=== PATIENT | female | born 1980 | race Caucasian/White ===

== ENCOUNTER 2016-09-17 09:07 | Day surgery (SDC) | payer BC ==
[~2016-09-17] VITALS: Ht 172.7 cm; Wt 68.1 kg
[~2016-09-17 09:07] MED LIST: DESYREL100 MG PO; KLONOPIN1 MG PO; TRICOR145 MG PO; ZOLOFT50 MG PO; [UNRECOGNIZED DRUG - OTHER] PO
[2016-09-17 10:03] VITALS: BP 117/76
[2016-09-17] MEDS ORDERED: IBUPROFEN800 MG PO (14:15)
[2016-09-17] MEDS ORDERED: HYDROCODON-ACE1 EAC7 PO (14:15)
[2016-09-17 15:15] VITALS: BP 109/58
[2016-09-17 16:08] VITALS: BP 109/75
== END 2016-09-17 16:16 | disposition home or self-care (01) ==
LOC: SDC 09:07
PROC: 0UBC7ZX Excision of Cervix, Via Natural or Artificial Opening, Diagnostic (ICD-10-PCS; principal; 2016-09-17)
DX: D06.7 Carcinoma in situ of other parts of cervix (principal); Z88.0 Allergy status to penicillin
CPT/HCPCS: 88305; 88307; J1170; J1885; J2250; J2405; J3010

== ENCOUNTER 2016-09-22 00:17 | Emergency (ER) | payer BC ==
[~2016-09-22] VITALS: Ht 172.7 cm; Wt 56.6 kg
[~2016-09-22 00:17] MED LIST changes: +HYDROCODON-ACE1 EAC7 PO; +IBUPROFEN800 MG PO
[2016-09-22 00:25] VITALS: BP 113/68
== END 2016-09-22 01:47 | disposition left against medical advice (07) ==
LOC: EME 00:17
DX: G89.18 Other acute postprocedural pain (principal); Z53.21 Procedure and treatment not carried out due to patient leaving prior to being seen by health care provider; R10.9 Unspecified abdominal pain

== ENCOUNTER 2017-01-11 09:44 | Inpatient (IN) | payer SELFPAY ==
[~2017-01-11] VITALS: Ht 172.7 cm; Wt 51.2 kg
[2017-01-11 10:38] LABS: HEMATOCRIT 43.7 % (36.0-46.0); MCH 34.7 PG (29.0-34.0); MCHC 34.8 G/DL (30.0-36.0); MCV 99.8 FL (83-99); MEAN PLAT.VOLUME 10.1 uM^3 (9.5-12.4); PLATELET COUNT 249 K/uL (156-360); RBC DIS.WIDTH-CV 12.4 % (11.8-14.6); RBC DIS.WIDTH-SD 45.9 % (39-53); RED BLOOD COUNT 4.38 M/uL (3.80-5.20)
[2017-01-11 10:47] LABS: CHLORIDE 91 mEq/L (99-109); D-DIMER ELISA < 150.00 ng/mLDDU (<230); POTASSIUM 3.4 mEq/L (3.7-5.4); SODIUM 137 mEq/L (136-147)
[2017-01-11 10:49] LABS: GLUCOSE 99 mg/dL (70-99)
[2017-01-11 10:50] LABS: ANION GAP 23 MEQ/L (2-14)
[2017-01-11 10:53] LABS: GFR ESTIMATE (CALCULATED) > 59 mL/min/
[2017-01-11 10:54] LABS: UREA NITROGEN (BUN) 15 mg/dL (9-23)
[2017-01-11 11:01] LABS: TROP-I INTERPRETATION NEGATIVE; TROPONIN-I 0.03 ng/mL (0.0-0.30)
[2017-01-11] MEDS ORDERED: ZANTAC150 MG PO (12:23)
[2017-01-11] MEDS ORDERED: SERTRALINE HCL25 MG PO (12:25)
[2017-01-11 13:49] LABS: TOTAL BILIRUBIN 0.8 mg/dL (0.0-1.0)
[2017-01-11 13:50] LABS: ALKALINE PHOSPHATASE 152 IU/L (3-129)
[2017-01-11 13:52] LABS: DIRECT BILIRUBIN 0.3 mg/dL (0.0-0.3)
[2017-01-11 14:01] VITALS: BP 99/66
[2017-01-11 15:28] LABS: TOTAL BILIRUBIN 0.6 mg/dL (0.0-1.0)
[2017-01-11 15:29] LABS: ALKALINE PHOSPHATASE 110 IU/L (3-129)
[2017-01-11 15:31] LABS: DIRECT BILIRUBIN 0.3 mg/dL (0.0-0.3)
[2017-01-11 15:36] VITALS: BP 103/78
[2017-01-11 15:55] LABS: TROP-I INTERPRETATION NEGATIVE; TROPONIN-I 0.02 ng/mL (0.0-0.30)
[2017-01-11 15:55] LABS: ADD MIUA? YES; BILIRUBIN NEGATIVE; BLOOD NEGATIVE; COLOR YELLOW ((YELLOW)); GLUCOSE (STRIP) NEGATIVE; KETONES 5; LEUKOCYTES TRACE; NITRITE NEGATIVE; PROTEIN (STRIP) NEGATIVE; SPECIFIC GRAVITY 1.021 (1.000-1.030); UROBILINOGEN 0.2 MG/DL (0.2-1.0)
[2017-01-11 16:29] LABS: EPITHELIAL CELLS 1+ /HPF; MUCUS 2+ /LPF; RED BLOOD CELLS 0-5 /HPF (0-5); WHITE BLOOD CELLS 0-5 /HPF (0-5)
[2017-01-11 16:30] LABS: AMORPHOUS URATES CRYSTALS 1+; BACTERIA NONE SEEN /HPF; CASTS NONE SEEN /LPF; CRYSTALS PRESENT
[2017-01-11 19:06] VITALS: BP 102/71
[2017-01-11 19:41] VITALS: BP 108/77
[2017-01-11 19:56] LABS: AMPHETAMINES QUANT VALUE 0 NG/ML; BARBITUATES QUANT VALUE 0 NG/ML; BENZODIAZEPINES, URINE SCREEN POSITIVE (200 ng/mL); MARIJUANA QUANT VALUE 0 NG/ML; OPIATES QUANTITATIVE VALUE 0 NG/ML; PHENCYCLIDINE QUANT VALUE 0 NG/ML
[2017-01-11 22:09] LABS: TROP-I INTERPRETATION NEGATIVE; TROPONIN-I 0.02 ng/mL (0.0-0.30)
[2017-01-11 22:47] VITALS: BP 100/70
[2017-01-12 02:37] VITALS: BP 111/81
[2017-01-12 07:18] LABS: MCH 36.2 PG (29.0-34.0); MCHC 34.8 G/DL (30.0-36.0); PLATELET COUNT 179 K/uL (156-360); RBC DIS.WIDTH-CV 12.7 % (11.8-14.6); RBC DIS.WIDTH-SD 48.5 % (39-53); WHITE BLOOD COUNT 6.2 K/uL (4.1-10.2)
[2017-01-12 07:25] LABS: MCV 103.8 FL (83-99); RED BLOOD COUNT 3.18 M/uL (3.80-5.20)
[2017-01-12 07:34] LABS: ANION GAP 10 MEQ/L (2-14); CHLORIDE 104 MEQ/L (99-109); GFR ESTIMATE (CALCULATED) > 59 mL/min/; GLUCOSE 80 mg/dL (70-99); POTASSIUM 3.1 MEQ/L (3.7-5.4); SAMPLE HEMOLYSIS CHECK 0; SAMPLE ICTERIC CHECK 0; SAMPLE LIPEMIA CHECK 0; SODIUM 139 MEQ/L (136-147); UREA NITROGEN (BUN) 9 mg/dL (9-23)
[2017-01-12 08:33] LABS: MAGNESIUM 1.7 mg/dl (1.3-2.7)
[2017-01-12 09:00] VITALS: BP 104/86
[2017-01-12 12:00] VITALS: BP 108/76
[2017-01-12 16:15] VITALS: BP 123/78
[2017-01-12 19:42] VITALS: BP 100/72
[2017-01-12 23:53] VITALS: BP 105/73
[2017-01-13 02:00] VITALS: BP 102/66
[2017-01-13 06:36] LABS: HEMATOCRIT 31.3 % (36.0-46.0); MCH 34.2 PG (29.0-34.0); MCHC 32.6 G/DL (30.0-36.0); MEAN PLAT.VOLUME 10.4 uM^3 (9.5-12.4); PLATELET COUNT 192 K/uL (156-360); RBC DIS.WIDTH-CV 12.8 % (11.8-14.6); RBC DIS.WIDTH-SD 49.2 % (39-53); RED BLOOD COUNT 2.98 M/uL (3.80-5.20); WHITE BLOOD COUNT 5.6 K/uL (4.1-10.2)
[2017-01-13 07:11] LABS: ANION GAP 9 MEQ/L (2-14); CHLORIDE 109 MEQ/L (99-109); GFR ESTIMATE (CALCULATED) > 59 mL/min/; GLUCOSE 72 mg/dL (70-99); POTASSIUM 3.2 MEQ/L (3.7-5.4); SAMPLE HEMOLYSIS CHECK 0; SAMPLE ICTERIC CHECK 0; SAMPLE LIPEMIA CHECK 0; SODIUM 142 MEQ/L (136-147); UREA NITROGEN (BUN) 4 mg/dL (9-23)
[2017-01-13] MEDS ORDERED: PROTONIX40 MG PO (07:51)
[2017-01-13 08:48] VITALS: BP 104/75
== END 2017-01-13 13:12 | disposition home or self-care (01) | DRG 315 ==
LOC: EME 09:44 → 4EAST 12:20 → EDOF 12:20 → ENRESERV 12:24 → EDOF 12:25 → ENRESERV 13:08 → 4EAST 18:45 → ENPENDDIS 01-13 → 4EAST 01-13 13:12
PROVIDERS: Internal Medicine; Nurse Practitioner Family
DX: R94.31 Abnormal electrocardiogram [ECG] [EKG] (principal); R07.89 Other chest pain; E87.2 Acidosis; E87.6 Hypokalemia; R55 Syncope and collapse; K52.9 Noninfective gastroenteritis and colitis, unspecified; K29.60 Other gastritis without bleeding; I95.9 Hypotension, unspecified; R00.0 Tachycardia, unspecified; R00.2 Palpitations; R06.02 Shortness of breath; R42 Dizziness and giddiness; S01.81XA Laceration without foreign body of other part of head, initial encounter; W10.9XXA Fall (on) (from) unspecified stairs and steps, initial encounter; Y92.009 Unspecified place in unspecified non-institutional (private) residence as the place of occurrence of the external cause; Y93.01 Activity, walking, marching and hiking; D64.9 Anemia, unspecified; R63.4 Abnormal weight loss; Z68.1 Body mass index [BMI] 19.9 or less, adult; G43.909 Migraine, unspecified, not intractable, without status migrainosus; F17.210 Nicotine dependence, cigarettes, uncomplicated; F41.0 Panic disorder [episodic paroxysmal anxiety]; F32.9 Major depressive disorder, single episode, unspecified; Z85.41 Personal history of malignant neoplasm of cervix uteri; Z82.49 Family history of ischemic heart disease and other diseases of the circulatory system; Z83.3 Family history of diabetes mellitus
CPT/HCPCS: 70450; 71020; 74176; 80048; 80076; 80306 90; 81003; 83605; 83735; 84100; 84443; 84484; 84702; 85027; 85379; 93005; 93306; 99281; 99285; J1650; J2060; J2405; J7030; S0028

== ENCOUNTER 2017-01-16 19:19 | Emergency (ER) | payer SELFPAY ==
[~2017-01-16] VITALS: Ht 172.7 cm; Wt 52.6 kg
[~2017-01-16 19:19] MED LIST changes: +PROTONIX40 MG PO; +SERTRALINE HCL25 MG PO; +ZANTAC150 MG PO
[2017-01-16 19:43] LABS: MCH 34.6 PG (29.0-34.0); MCHC 33.9 G/DL (30.0-36.0); MEAN PLAT.VOLUME 9.2 uM^3 (9.5-12.4); PLATELET COUNT 334 K/uL (156-360); RBC DIS.WIDTH-CV 13.2 % (11.8-14.6); RED BLOOD COUNT 3.53 M/uL (3.80-5.20); WHITE BLOOD COUNT 9.2 K/uL (4.1-10.2)
[2017-01-16 19:54] LABS: SODIUM 142 mEq/L (136-147)
[2017-01-16 19:55] LABS: CHLORIDE 104 mEq/L (99-109); GLUCOSE 105 mg/dL (70-99)
[2017-01-16 19:57] LABS: ANION GAP 13 MEQ/L (2-14)
[2017-01-16 19:59] LABS: GFR ESTIMATE (CALCULATED) > 59 mL/min/
[2017-01-16 20:00] LABS: UREA NITROGEN (BUN) 5 mg/dL (9-23)
[2017-01-16 20:03] LABS: TROP-I INTERPRETATION NEGATIVE; TROPONIN-I < 0.01 ng/mL (0.0-0.30)
[2017-01-16 21:40] LABS: SERUM ETHYL ALCOHOL 149 mg/dL
[2017-01-16 23:11] VITALS: BP 121/87
== END 2017-01-16 23:13 | disposition home or self-care (01) ==
LOC: EME → EDBD 19:19 → EME 19:19
PROVIDERS: Emergency Medicine
DX: F10.129 Alcohol abuse with intoxication, unspecified (principal); Y90.6 Blood alcohol level of 120-199 mg/100 ml; R07.9 Chest pain, unspecified; E86.0 Dehydration
CPT/HCPCS: 71020; 71275; 80048; 84484; 85027; 85379; 93005; 99281; 99285; G0480; J1885; J7030

== ENCOUNTER 2017-03-04 13:57 | Emergency (ER) | payer MEDICARE ==
[~2017-03-04] VITALS: Ht 172.7 cm; Wt 44.2 kg
[2017-03-04 17:16] LABS: CHLORIDE 104 mEq/L (99-109); POTASSIUM 3.4 mEq/L (3.7-5.4); SODIUM 140 mEq/L (136-147)
[2017-03-04 17:18] LABS: GLUCOSE 90 mg/dL (70-99)
[2017-03-04 17:19] LABS: ANION GAP 13 MEQ/L (2-14)
[2017-03-04 17:20] LABS: TOTAL BILIRUBIN 0.3 mg/dL (0.0-1.0)
[2017-03-04 17:21] LABS: SERUM ETHYL ALCOHOL 13 mg/dL
[2017-03-04 17:22] LABS: ALKALINE PHOSPHATASE 110 IU/L (3-129); GFR ESTIMATE (CALCULATED) > 59 mL/min/
[2017-03-04 17:23] LABS: UREA NITROGEN (BUN) 7 mg/dL (9-23)
[2017-03-04 17:24] LABS: HEMATOCRIT 37.9 % (36.0-46.0); MCHC 34.6 G/DL (30.0-36.0); MCV 101.3 FL (83-99); MEAN PLAT.VOLUME 10.5 uM^3 (9.5-12.4); PLATELET COUNT 210 K/uL (156-360); RBC DIS.WIDTH-CV 14.8 % (11.8-14.6); RBC DIS.WIDTH-SD 53.7 % (39-53); RED BLOOD COUNT 3.74 M/uL (3.80-5.20); WHITE BLOOD COUNT 5.8 K/uL (4.1-10.2)
[2017-03-04] MEDS ORDERED: ATARAX,VISTARIL50 MG PO (17:44)
[2017-03-04 18:11] VITALS: BP 94/72
== END 2017-03-04 18:11 | disposition home or self-care (01) ==
LOC: EME 13:57
PROVIDERS: Emergency Medicine
DX: F33.2 Major depressive disorder, recurrent severe without psychotic features (principal); F41.9 Anxiety disorder, unspecified; F17.200 Nicotine dependence, unspecified, uncomplicated; F10.10 Alcohol abuse, uncomplicated; Z88.0 Allergy status to penicillin
CPT/HCPCS: 80053; 81003; 85027; 90839; 99281; 99284; G0480

== ENCOUNTER 2017-03-18 16:57 | Inpatient (IN) | payer OTHER ==
[~2017-03-18] VITALS: Ht 172.7 cm; Wt 45.8 kg
[~2017-03-18 16:57] MED LIST changes: +ATARAX,VISTARIL50 MG PO
[2017-03-18 18:35] LABS: HEMATOCRIT 43.7 % (36.0-46.0); MCH 33.8 PG (29.0-34.0); MCHC 35.5 G/DL (30.0-36.0); MEAN PLAT.VOLUME 10.3 uM^3 (9.5-12.4); PLATELET COUNT 255 K/uL (156-360); RBC DIS.WIDTH-CV 14.1 % (11.8-14.6); RBC DIS.WIDTH-SD 49.1 % (39-53); WHITE BLOOD COUNT 14.6 K/uL (4.1-10.2)
[2017-03-18 18:36] LABS: MCV 95.2 FL (83-99); RED BLOOD COUNT 4.59 M/uL (3.80-5.20)
[2017-03-18 18:46] LABS: CHLORIDE 93 mEq/L (99-109); POTASSIUM 4.6 mEq/L (3.7-5.4); SODIUM 132 mEq/L (136-147)
[2017-03-18 18:49] LABS: GLUCOSE 103 mg/dL (70-99)
[2017-03-18 18:50] LABS: ANION GAP 25 MEQ/L (2-14)
[2017-03-18 18:51] LABS: TOTAL BILIRUBIN 1.2 mg/dL (0.0-1.0)
[2017-03-18 18:52] LABS: ALKALINE PHOSPHATASE 111 IU/L (3-129); SERUM ETHYL ALCOHOL < 10 mg/dL
[2017-03-18 18:53] LABS: GFR ESTIMATE (CALCULATED) > 59 mL/min/
[2017-03-18 18:54] LABS: UREA NITROGEN (BUN) 34 mg/dL (9-23)
[2017-03-18 19:01] LABS: QUANTITATIVE HCG < 4.0 MIU/ML
[2017-03-18 20:28] LABS: ADD MIUA? YES; BILIRUBIN MODERATE; BLOOD NEGATIVE; COLOR AMBER ((YELLOW)); GLUCOSE (STRIP) NEGATIVE; KETONES 20; LEUKOCYTES MODERATE; NITRITE NEGATIVE; PROTEIN (STRIP) 100; SPECIFIC GRAVITY 1.034 (1.000-1.030)
[2017-03-18 20:37] LABS: AMPHETAMINE NEGATIVE (500 ng/mL); BARBITURATES NEGATIVE (200 ng/mL); BENZODIAZEPINES PRESUMPTIVE POSITIVE (150 ng/mL); COCAINE NEGATIVE (150 ng/mL); INTERNAL CONTROLS VALID? YES; METHADONE NEGATIVE (200 ng/mL); METHAMPHETAMINE NEGATIVE (500 ng/mL); OPIATES (MORPHINE) NEGATIVE (100 ng/mL); OXYCODONE NEGATIVE (100 ng/mL); PHENCYCLIDINE NEGATIVE (25 ng/mL); PROPOXYPHENE NEGATIVE (300 ng/mL); THC CANNABINOIDS NEGATIVE (50 ng/mL); TRICYCLIC ANTIDEPRESSANTS NEGATIVE (300 ng/mL)
[2017-03-18 20:38] LABS: ADD MEDTOX COMMENT Y
[2017-03-18 20:55] LABS: BACTERIA 1+ /HPF; CASTS PRESENT /LPF; CRYSTALS NONE SEEN; EPITHELIAL CELLS 1+ /HPF; HYALINE CASTS 0-5 /LPF; MUCUS 3+ /LPF; RED BLOOD CELLS 0-5 /HPF (0-5)
[2017-03-18 21:09] LABS: ICTOTEST NEGATIVE
[2017-03-18 21:10] LABS: BENZODIAZEPINES, URINE SCREEN POSITIVE (200 ng/mL)
[2017-03-18 21:17] LABS: CHLORIDE 99 mEq/L (99-109); POTASSIUM 4.3 mEq/L (3.7-5.4); SODIUM 134 mEq/L (136-147)
[2017-03-18 21:19] LABS: GLUCOSE 101 mg/dL (70-99)
[2017-03-18 21:20] LABS: ANION GAP 20 MEQ/L (2-14)
[2017-03-18 21:23] LABS: GFR ESTIMATE (CALCULATED) > 59 mL/min/
[2017-03-18 21:24] LABS: UREA NITROGEN (BUN) 30 mg/dL (9-23)
[2017-03-18] MEDS ORDERED: KLONOPIN2 MG PO (23:01)
[2017-03-18] MEDS ORDERED: SERTRALINE HCL100 MG PO (23:01)
[2017-03-18] MEDS ORDERED: MULTI-VITAMIN1 EAC3 PO (23:03)
[2017-03-19 01:57] VITALS: BP 109/72
[2017-03-19 06:30] LABS: HEMATOCRIT 33.4 % (36.0-46.0); MCH 34.6 PG (29.0-34.0); MCHC 35.6 G/DL (30.0-36.0); MCV 97.1 FL (83-99); MEAN PLAT.VOLUME 10.4 uM^3 (9.5-12.4); RBC DIS.WIDTH-CV 14.5 % (11.8-14.6); RBC DIS.WIDTH-SD 51.7 % (39-53); WHITE BLOOD COUNT 13.5 K/uL (4.1-10.2)
[2017-03-19 06:32] LABS: RED BLOOD COUNT 3.44 M/uL (3.80-5.20)
[2017-03-19 06:33] LABS: PLATELET COUNT 163 K/uL (156-360)
[2017-03-19 07:08] LABS: PLAT.SUFFICIENCY ADEQUATE
[2017-03-19 07:15] LABS: ALKALINE PHOSPHATASE 68 IU/L (3-129); ANION GAP 13 MEQ/L (2-14); CHLORIDE 99 MEQ/L (99-109); GFR ESTIMATE (CALCULATED) > 59 mL/min/; GLUCOSE 100 mg/dL (70-99); POTASSIUM 3.7 MEQ/L (3.7-5.4); PREALBUMIN 10.8 mg/dL (10-40); SAMPLE HEMOLYSIS CHECK 0; SAMPLE ICTERIC CHECK 0; SAMPLE LIPEMIA CHECK 0; SODIUM 130 MEQ/L (136-147); TOTAL BILIRUBIN 0.7 MG/DL (0.0-1.0); UREA NITROGEN (BUN) 22 mg/dL (9-23)
[2017-03-19 07:35] VITALS: BP 100/77
[2017-03-19 08:57] LABS: FERRITIN 448 NG/ML (10-291)
[2017-03-19 12:09] VITALS: BP 143/62
[2017-03-19 16:37] VITALS: BP 110/73
[2017-03-19 19:54] VITALS: BP 98/67
[2017-03-20 00:35] VITALS: BP 100/66
[2017-03-20 05:02] VITALS: BP 90/66
[2017-03-20 07:29] VITALS: BP 98/64
[2017-03-20 07:35] LABS: ANION GAP 6 MEQ/L (2-14); GFR ESTIMATE (CALCULATED) > 59 mL/min/; GLUCOSE 97 mg/dL (70-99); SAMPLE HEMOLYSIS CHECK 0; SAMPLE ICTERIC CHECK 0; SAMPLE LIPEMIA CHECK 0; UREA NITROGEN (BUN) 8 mg/dL (9-23)
[2017-03-20 07:40] LABS: CHLORIDE 114 MEQ/L (99-109); SODIUM 141 MEQ/L (136-147)
[2017-03-20 09:53] LABS: MAGNESIUM 1.4 mg/dl (1.3-2.7)
[2017-03-20 11:53] VITALS: BP 96/65
[2017-03-20 16:05] VITALS: BP 98/62
[2017-03-20 19:25] VITALS: BP 103/71
[2017-03-21] VITALS (7 sets, daily range): BP systolic 113–119; BP diastolic 74–89
[2017-03-21 06:30] LABS: HEMATOCRIT 27.6 % (36.0-46.0); MCH 34.3 PG (29.0-34.0); MCHC 33.7 G/DL (30.0-36.0); MEAN PLAT.VOLUME 10.4 uM^3 (9.5-12.4); PLATELET COUNT 165 K/uL (156-360); RBC DIS.WIDTH-CV 14.9 % (11.8-14.6); RBC DIS.WIDTH-SD 55.6 % (39-53); WHITE BLOOD COUNT 6.7 K/uL (4.1-10.2)
[2017-03-21 06:38] LABS: MCV 101.8 FL (83-99); RED BLOOD COUNT 2.71 M/uL (3.80-5.20)
[2017-03-21 06:54] LABS: ANION GAP 3 MEQ/L (2-14); CHLORIDE 112 MEQ/L (99-109); GFR ESTIMATE (CALCULATED) > 59 mL/min/; GLUCOSE 92 mg/dL (70-99); SAMPLE HEMOLYSIS CHECK 0; SAMPLE ICTERIC CHECK 0; SAMPLE LIPEMIA CHECK 0; SODIUM 139 MEQ/L (136-147); UREA NITROGEN (BUN) 3 mg/dL (9-23)
[2017-03-21 07:08] LABS: POTASSIUM 4.9 MEQ/L (3.7-5.4)
[2017-03-21] MEDS ORDERED: NICOTINE PATCH1 EAC2 TD (11:53)
[2017-03-21] MEDS ORDERED: MIRTAZAPINE30 MG PO (11:53)
[2017-03-21] MEDS ORDERED: LEVOFLOXACIN250 MG PO (11:53)
[2017-03-21] MEDS ORDERED: THERAGRAN1 TABLET PO (11:54)
[2017-03-21] MEDS ORDERED: FOLIC ACID1 MG PO (11:54)
[2017-03-21] MEDS ORDERED: THIAMINE HCL500 MG PO (11:54)
[2017-03-21] MEDS ORDERED: SERTRALINE HCL100 MG PO (11:54)
[2017-03-22 03:12] VITALS: BP 115/75
[2017-03-22 07:59] VITALS: BP 123/84
[2017-03-22 12:28] VITALS: BP 124/93
== END 2017-03-22 15:31 | disposition home or self-care (01) | DRG 682 ==
LOC: EME 16:57 → 5SOUTH 03-19 00:22 → EDOF 03-19 00:22 → ENRESERV 03-19 00:27 → 5SOUTH 03-19 01:37
PROVIDERS: Emergency Medicine; Hospitalist; Internal Medicine
DX: N17.9 Acute kidney failure, unspecified (principal); E43 Unspecified severe protein-calorie malnutrition; F05 Delirium due to known physiological condition; R64 Cachexia; Z68.1 Body mass index [BMI] 19.9 or less, adult; N39.0 Urinary tract infection, site not specified; E87.1 Hypo-osmolality and hyponatremia; E87.2 Acidosis; F33.9 Major depressive disorder, recurrent, unspecified; E86.0 Dehydration; F41.1 Generalized anxiety disorder; E87.6 Hypokalemia; F10.10 Alcohol abuse, uncomplicated; F17.210 Nicotine dependence, cigarettes, uncomplicated; F43.10 Post-traumatic stress disorder, unspecified; K21.9 Gastro-esophageal reflux disease without esophagitis; R62.7 Adult failure to thrive; Z62.810 Personal history of physical and sexual abuse in childhood; F40.01 Agoraphobia with panic disorder; Z81.8 Family history of other mental and behavioral disorders; Z85.41 Personal history of malignant neoplasm of cervix uteri; Z82.49 Family history of ischemic heart disease and other diseases of the circulatory system; Z56.0 Unemployment, unspecified; Z88.1 Allergy status to other antibiotic agents
CPT/HCPCS: 80048; 80048 91; 80053; 81003; 82607; 82728; 82746; 83605; 83735; 84100; 84134; 84443; 84702; 84999; 85027; 90686; 90839; 99281; 99285; G0480; J1644; J2405; J3411; J3475; J7030; J7042; S0028

== ENCOUNTER 2017-07-09 23:48 | Emergency (ER) | payer MEDICARE ==
[~2017-07-09] VITALS: Ht 172.7 cm; Wt 47.8 kg
[~2017-07-09 23:48] MED LIST changes: +FOLIC ACID1 MG PO; +KLONOPIN2 MG PO; +LEVOFLOXACIN250 MG PO; +MIRTAZAPINE30 MG PO; +MULTI-VITAMIN1 EAC3 PO; +NICOTINE PATCH1 EAC2 TD; +SERTRALINE HCL100 MG PO; +THERAGRAN1 TABLET PO; +THIAMINE HCL500 MG PO
[2017-07-09] MEDS ORDERED: CLONAZEPAM0.5 MG PO (23:57)
[2017-07-09] MEDS ORDERED: QUETIAPINE FUM100 MG PO (23:58)
[2017-07-10 01:27] LABS: HEMATOCRIT 32.4 % (36.0-46.0); MCH 33.5 PG (29.0-34.0); MCV 98.8 FL (83-99); PLATELET COUNT 229 K/uL (156-360); RBC DIS.WIDTH-CV 14.1 % (11.8-14.6); RBC DIS.WIDTH-SD 51.4 % (39-53); RED BLOOD COUNT 3.28 M/uL (3.80-5.20); WHITE BLOOD COUNT 9.4 K/uL (4.1-10.2)
[2017-07-10 01:35] LABS: ALBUMIN 3.6 g/dL (3.2-4.8); CHLORIDE 108 mEq/L (99-109); POTASSIUM 3.5 mEq/L (3.7-5.4); SODIUM 139 mEq/L (136-147)
[2017-07-10 01:37] LABS: GLUCOSE 101 mg/dL (70-99)
[2017-07-10 01:38] LABS: TOTAL PROTEIN 5.6 g/dL (6.4-8.3)
[2017-07-10 01:39] LABS: TOTAL BILIRUBIN 0.2 mg/dL (0.0-1.0)
[2017-07-10 01:40] LABS: SERUM ETHYL ALCOHOL < 10 mg/dL
[2017-07-10 01:41] LABS: ALKALINE PHOSPHATASE 77 IU/L (3-129); CREATININE 0.6 mg/dL (0.6-1.3); GFR ESTIMATE (CALCULATED) > 59 mL/min/
[2017-07-10 01:42] LABS: UREA NITROGEN (BUN) 11 mg/dL (9-23)
[2017-07-10 01:43] LABS: AST (GOT) 12 IU/L (2-34)
[2017-07-10 01:44] LABS: ALT (GPT) 7 IU/L (3-49)
[2017-07-10 02:52] LABS: AMPHETAMINE NEGATIVE (500 ng/mL); BARBITURATES NEGATIVE (200 ng/mL); BENZODIAZEPINES NEGATIVE (150 ng/mL); BUPRENORPHINE NEGATIVE (10 ng/mL); COCAINE NEGATIVE (150 ng/mL); METHADONE NEGATIVE (200 ng/mL); METHAMPHETAMINE NEGATIVE (500 ng/mL); OPIATES (MORPHINE) NEGATIVE (100 ng/mL); OXYCODONE NEGATIVE (100 ng/mL); PHENCYCLIDINE NEGATIVE (25 ng/mL); PROPOXYPHENE NEGATIVE (300 ng/mL); THC CANNABINOIDS NEGATIVE (50 ng/mL); TRICYCLIC ANTIDEPRESSANTS NEGATIVE (300 ng/mL)
[2017-07-10 03:26] VITALS: BP 127/95
== END 2017-07-10 03:26 | disposition home or self-care (01) ==
LOC: EME 23:48
PROVIDERS: Emergency Medicine
DX: F32.9 Major depressive disorder, single episode, unspecified (principal); F43.20 Adjustment disorder, unspecified; F17.200 Nicotine dependence, unspecified, uncomplicated; Z88.0 Allergy status to penicillin; Z88.8 Allergy status to other drugs, medicaments and biological substances
CPT/HCPCS: 80053; 81025; 85027; 90839; 99281; 99285; G0480

== ENCOUNTER 2017-07-11 18:23 | Emergency (ER) | payer MEDICARE ==
[~2017-07-11] VITALS: Ht 157.5 cm; Wt 54.5 kg
[~2017-07-11 18:23] MED LIST changes: +CLONAZEPAM0.5 MG PO; +QUETIAPINE FUM100 MG PO
[2017-07-11 19:59] LABS: HEMATOCRIT 35.8 % (36.0-46.0); HEMOGLOBIN 12.1 G/DL (11.9-15.5); MCH 33.2 PG (29.0-34.0); MCHC 33.8 G/DL (30.0-36.0); MCV 98.1 FL (83-99); PLATELET COUNT 230 K/uL (156-360); RBC DIS.WIDTH-CV 13.8 % (11.8-14.6); RBC DIS.WIDTH-SD 49.9 % (39-53); RED BLOOD COUNT 3.65 M/uL (3.80-5.20); WHITE BLOOD COUNT 9.3 K/uL (4.1-10.2)
[2017-07-11 20:08] LABS: CHLORIDE 105 mEq/L (99-109); POTASSIUM 3.8 mEq/L (3.7-5.4); SODIUM 139 mEq/L (136-147)
[2017-07-11 20:10] LABS: GLUCOSE 94 mg/dL (70-99)
[2017-07-11 20:13] LABS: CREATININE 0.6 mg/dL (0.6-1.3); GFR ESTIMATE (CALCULATED) > 59 mL/min/; SERUM ETHYL ALCOHOL < 10 mg/dL
[2017-07-11 20:14] LABS: UREA NITROGEN (BUN) 10 mg/dL (9-23)
[2017-07-11 21:59] VITALS: BP 108/72
== END 2017-07-11 22:00 | disposition home or self-care (01) ==
LOC: EME 18:23
PROVIDERS: Emergency Medicine
DX: F33.2 Major depressive disorder, recurrent severe without psychotic features (principal); F41.0 Panic disorder [episodic paroxysmal anxiety]; F50.01 Anorexia nervosa, restricting type; R41.0 Disorientation, unspecified; F17.200 Nicotine dependence, unspecified, uncomplicated
CPT/HCPCS: 80048; 81003; 81025; 85027; 90839; 99281; 99284; G0480

== ENCOUNTER 2017-12-08 10:35 | Emergency (ER) | payer OTHER, MEDICARE ==
[~2017-12-08] VITALS: Ht 172.7 cm; Wt 46.7 kg
[2017-12-08 11:25] LABS: HEMATOCRIT 41.7 % (36.0-46.0); HEMOGLOBIN 14.6 G/DL (11.9-15.5); MCH 34.8 PG (29.0-34.0); MCV 99.3 FL (83-99); RBC DIS.WIDTH-CV 12.6 % (11.8-14.6); RBC DIS.WIDTH-SD 45.7 % (39-53); WHITE BLOOD COUNT 15.8 K/uL (4.1-10.2)
[2017-12-08 11:33] LABS: CHLORIDE 104 mEq/L (99-109); POTASSIUM 5.9 mEq/L (3.7-5.4); SODIUM 138 mEq/L (136-147)
[2017-12-08 11:34] LABS: GLUCOSE 88 mg/dL (70-99)
[2017-12-08 11:38] LABS: CREATININE 0.8 mg/dL (0.6-1.3); GFR ESTIMATE (CALCULATED) > 59 mL/min/
[2017-12-08 11:39] LABS: UREA NITROGEN (BUN) 8 mg/dL (9-23)
[2017-12-08 11:49] LABS: QUANTITATIVE HCG < 4.0 MIU/ML
[2017-12-08 12:05] LABS: PLAT.SUFFICIENCY ADEQUATE; PLATELET COUNT 202 K/uL (156-360)
[2017-12-08 12:14] LABS: TROP-I INTERPRETATION NEGATIVE; TROPONIN-I < 0.01 ng/mL (0.0-0.30)
[2017-12-08 13:28] VITALS: BP 119/83
== END 2017-12-08 13:33 | disposition home or self-care (01) ==
LOC: EME 10:35
PROVIDERS: Nurse Practitioner Family
PROC: 0HQ1XZZ Repair Face Skin, External Approach (ICD-10-PCS; principal; 2017-12-08)
DX: R55 Syncope and collapse (principal); S01.81XA Laceration without foreign body of other part of head, initial encounter; E86.0 Dehydration; W18.39XA Other fall on same level, initial encounter; Y99.0 Civilian activity done for income or pay; F17.200 Nicotine dependence, unspecified, uncomplicated
CPT/HCPCS: 80048; 84484; 84702; 85027; 93005; 99281; 99285; J7030